=== PATIENT | female | born 1975 | race Caucasian/White ===

== ENCOUNTER → 2021-05-31 14:15 | Outpatient (CLI) | payer OTHER, SELFPAY ==
[2021-05-31 14:58] LABS: Pregnancy Test Urine Negative (Negative)
[2021-05-31 15:04] LABS: Hematocrit 43.6 % (36-46); Hemoglobin 14.9 g/dL (12.0-16.0); Mean Corpuscular HGB Conc 34.2 % (30-36); Mean Corpuscular Hemoglobin 29.5 PG (26-34); Mean Corpuscular Volume 86.2 fL (80-100); Platelet Count 345 X10^3/uL (150-400); Red Blood Cell Count 5.06 X10^6/uL (4.0-5.2); Red Cell Distribution Width 13.3 % (11.6-14.8); White Blood Cell Count 8.8 X10^3/uL (4.5-11.0)
[2021-05-31 16:16] LABS: TSH w/ Reflex to FT4 2.86 uIU/mL (0.47-4.68)
== END ==
PROVIDERS: PCP Nurse Practitioner Family; Referring Provider Nurse Practitioner Family; Visit Provider Nurse Practitioner Family
DX: N92.6 Irregular menstruation, unspecified (principal)
CPT/HCPCS: 36415; 81025; 84443; 85027